=== PATIENT | male | born 1970 | race Caucasian/White ===

== ENCOUNTER 2019-10-05 09:28 | Outpatient (CLI) | payer OTHER, SELFPAY ==
--- NOTE | 2019-10-05 11:00 | NEURO_ITS ---
Patient Number: [id number] Impression: # Complains of paresthesia/numbness of right hand. # Right moderate Carpal Tunnel Syndrome. # No ulnar neuropathy. # Needle/EMG exam neurogenic in right APB. # Ulnar to median cross innervation above the wrist noted. Nerve Conduction Studies Anti Sensory Summary Table Stim Site NR Peak (ms) P-T Amp (?V) Site1 Site2 Delta-P (ms) Dist (cm) Alok (m/s) Right Median Anti Sensory (2-3nd Digit) Wrist 4.2 31.5 Wrist 2-3nd Digit 4.2 14.0 33 Wrist 4.1 39.2 Wrist 2-3nd Digit 4.2 14.0 33 Right Radial Anti Sensory (Base 1st Digit) Wrist 2.0 29.2 Wrist Base 1st Digit 2.0 0.0 Right Ulnar Anti Sensory (5th Digit) Wrist 2.4 47.2 Wrist 5th Digit 2.4 14.0 58 Motor Summary Table Stim Site NR Onset (ms) O-P Amp (mV) Site1 Site2 Delta-0 (ms) Dist (cm) Alok (m/s) Right Median Motor (Abd Poll Brev) Wrist 5.6 2.0 Elbow Wrist 5.5 30.0 55 Elbow 11.1 2.2 Right Ulnar Motor (Abd Dig Minimi) Wrist 2.7 7.7 A Elbow Wrist 5.5 31.0 56 A Elbow 8.2 6.4 F Wave Studies NR F-Lat (ms) L-R F-Lat (ms) Right Median (Mrkrs) (Abd Poll Brev) 28.54 Right Ulnar (Mrkrs) (Abd Dig Min) 29.55 EMG Side Muscle Nerve Root Ins Act Fibs Amp Dur Recrt Comment Right 1stDorInt Ulnar C8-T1 Nml Nml Nml Nml Nml Right Ext Indicis Radial (Post Int) C7-8 Nml Nml Nml Nml Nml Right Ext Digitorum Radial (Post Int) C7-8 Nml Nml Nml Nml Nml Right BrachioRad Radial C5-6 Nml Nml Nml Nml Nml Right PronatorTeres Median C6-7 Nml Nml Nml Nml Nml Right Abd Poll Brev Median C8-T1 Nml Nml Incr >12ms Reduced Right ABD Dig Min Ulnar C8-T1 Nml Nml Nml Nml Nml MTDD
== END 2019-10-05 09:29 | disposition home or self-care (01) ==
LOC: ANHNEURO 09:29
PROVIDERS: PCP Family Medicine Adolescent Medicine; Visit Provider Physician Assistant
DX: R20.2 Paresthesia of skin (principal); G56.01 Carpal tunnel syndrome, right upper limb
CPT/HCPCS: 95886; 95909

== ENCOUNTER 2019-12-07 13:10 | Outpatient (CLI) | payer OTHER, SELFPAY ==
--- NOTE | 2019-12-07 13:14 | ECG_ITS ---
Measurements Intervals [place] Rate: 78 P: 48 GA: 169 QRS: 36 QRSD: 129 T: 14 QT: 372 QTc: 426 Interpretive Statements SINUS RHYTHM RIGHT BUNDLE BRANCH BLOCK ABNORMAL ECG Electronically Signed On 12-07-2019 14:23:27 CDT by Cirilo Santiago D.O.
== END 2019-12-07 13:11 | disposition home or self-care (01) ==
LOC: ANHSURGERY 13:14
PROVIDERS: PCP Family Medicine Adolescent Medicine; Visit Provider Orthopaedic Surgery
DX: Z01.818 Encounter for other preprocedural examination (principal); I10 Essential (primary) hypertension; I45.10 Unspecified right bundle-branch block
CPT/HCPCS: 93005

== ENCOUNTER 2019-12-15 02:12 | Outpatient (CLI) | payer OTHER, SELFPAY ==
[2019-12-15 18:25] LABS: SARS-CoV-2 RNA PCR Negative
== END 2019-12-15 02:13 | disposition home or self-care (01) ==
LOC: ANHCOVIDDT 02:12
PROVIDERS: PCP Family Medicine Adolescent Medicine; Visit Provider Orthopaedic Surgery
DX: Z01.812 Encounter for preprocedural laboratory examination (principal); Z20.828 Contact with and (suspected) exposure to other viral communicable diseases
CPT/HCPCS: 87635; C9803; U0003

== ENCOUNTER 2019-12-18 01:39 | Day surgery (SDC) | payer OTHER, SELFPAY ==
[2019-12-05 15:58] VITALS: BMI 34.2
--- NOTE | 2019-12-18 08:19 | WPDANESEPPF ---
Anes - Initial Pre Proc Eval Procedure: Operation Date: 12/18/19 11:00 Proposed Procedures p Right Carpal Tunnel Release - Nik Dominguez MD Date/Time: 12/18/19 08:19 Surgeon: Nik Dominguez MD Pre Op Diagnosis: Right Carpal Tunnel Syndrome Patient Data Age: 49 Gender: M Height: 1.85 m Weight: 117.93 kg Allergies Allergy/AdvReac Type Severity Reaction Status Date / Time naproxen Allergy Mild vertigo Verified 12/18/19 09:26 Penicillins Allergy Mild Swelling Verified 12/18/19 09:26 Home Medications Medication Instructions Recorded Confirmed Type lisinopril 30 mg PO DAILY 12/05/19 12/18/19 History Patient hx anesthesia problems: none Family hx anesthesia problems: none PMFSH Past Medical History Medical History (Updated 12/18/19 @ 08:19 by Andrea Horner MD) Carpal tunnel syndrome on both sides Hypertension Obesity Surgical History Surgical History History of left knee surgery (~2015) Dr bennett Family History Family History Father Diabetes mellitus Hypertension Grandparent Diabetes mellitus Social History Social History Smoking status: Never smoker Alcohol intake: current Drinks per week: 3 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 Spiritual care concerns: No Anes - Eval Final PreProcedure Day of Procedure 12/18/19 08:19 Patient weight: obese Heart: regular rate and rhythm Lungs: clear to auscultation and normal air movement Airway: Mallampati scale class II Neurological: alert and oriented Last oral intake: >/= 8 hours ASA classification: III Emergent: no Anesthetic plan: proceed Anesthesia type and monitoring: general GIVS and LMA Informed Consent: The patient's anesthetic plan and its attendant risks and benefits were discussed with the patient/family/POA. Questions were solicited and answers provided to the satisfaction of the patient/family/POA.
[2019-12-18 08:59] VITALS: BP 130/92; PULSE 82; RESP 18; TEMP 36.6; O2SAT 100
[2019-12-18] MEDS: LACTATED RINGERS 1,000 ML 30 ML IV CONT (09:10)
[2019-12-18] MEDS: KETOROLAC 15 MG/ML VIAL (*BKC) IV PUSH (09:16)
[2019-12-18] MEDS: ACETAMINOPHEN 500 MG TABLET 1000 MG PO (09:16)
--- NOTE | 2019-12-18 10:59 | WPDHPUPDATE1 ---
History and Physical Update Update Date/Time: 12/18/19 10:59 History and Physical has been reviewed, including an updated exam of the patient. There are NO changes in the patient's condition. Risks, benefits, and alternatives have been discussed and questions answered. Patient agrees to proceed with procedure.
[2019-12-18] MEDS: CLINDAMYCIN 900 MG/NS 50 ML 900 MG/50 ML PIGGYBACK 50 MG IVPB (11:05)
[2019-12-18] MEDS: BUPIVACAINE/EPINEPHRINE 0.25% 50 ML VIAL 10 ML INFILTRATE (11:13)
[2019-12-18 11:34] VITALS: BP 139/77; PULSE 80; RESP 18; O2SAT 95
--- NOTE | 2019-12-18 11:44 | P.OP_ITS ---
Procedure Note - Detailed Date of procedure: 12/18/19 Pre-op diagnosis: Right Carpal Tunnel Syndrome Post-op diagnosis: same Procedure performed: Open right carpal tunnel release Description of procedure: The patient was identified and proper side identified. After being taken to the operating room and transferred to the OR table, a nonsterile tourniquet was placed high on the right upper extremity, which was prepped and draped in the usual sterile fashion. After IV sedation was administered, the subcutaneous tissue in the area of the incision was infiltrated with several cc of 0.25% Marcaine and epinephrine solution. The extremity was exsanguinated and tourniquet inflated to 250 mmHg remaining up for approximately 4 minutes. A longitudinal incision was over the ulnar aspect of the transverse carpal ligament. Subcutaneous tissue was bluntly dissected down to the ligament, which was identified and then transected longitudinally in line with the incision releasing the contents of the carpal canal. The tourniquet was released. Hemostasis was carried out with bipolar electrocautery. The median nerve had appropriate blush with reperfusion. The wound was irrigated with sterile saline solution. Skin edges were reappr oximated with four 0 nylon suture and a sterile dressing was applied. A well- padded volar wrist splint was fashioned with the wrist in a neutral position. Anesthesia: MAC and local Surgeon: Nik Dominguez MD Estimated blood loss (mL): 2 Tourniquet time (min): 4 Drains: No Packing: No Pathology: none sent Complications: No immediate complications Condition: stable Disposition: same day
[2019-12-18 12:05] VITALS: BP 131/76; PULSE 77; RESP 18; O2SAT 95
[2019-12-18 12:50] VITALS: BP 130/62; PULSE 57; RESP 16
--- NOTE | 2019-12-18 13:03 | SUR.PHASEII ---
1250; PT AWAKE AND ALERT. DENIES PAIN. READY TO GO HOME. MEETS DISCHARGE CRITERIA.
== END 2019-12-18 13:14 | disposition home or self-care (01) ==
PROVIDERS: PCP Family Medicine Adolescent Medicine; Visit Provider Orthopaedic Surgery
PROC: (CPT 64721; principal; 2019-12-18 11:00)
DX: G56.01 Carpal tunnel syndrome, right upper limb (principal); I10 Essential (primary) hypertension; E66.9 Obesity, unspecified; Z68.33 Body mass index [BMI] 33.0-33.9, adult
CPT/HCPCS: 64721; A9270; J1885; J2250; J2704; J3010; J7120

== ENCOUNTER 2019-12-29 02:49 | Outpatient (CLI) | payer OTHER, SELFPAY ==
[2019-12-29 18:02] LABS: SARS-CoV-2 RNA PCR Negative
== END 2019-12-29 02:50 | disposition home or self-care (01) ==
LOC: ANHCOVIDDT 02:49
PROVIDERS: PCP Family Medicine Adolescent Medicine; Visit Provider Orthopaedic Surgery
DX: Z01.812 Encounter for preprocedural laboratory examination (principal); Z20.828 Contact with and (suspected) exposure to other viral communicable diseases
CPT/HCPCS: 87635; C9803; U0003

== ENCOUNTER 2020-01-01 01:14 | Day surgery (SDC) | payer OTHER, SELFPAY ==
[2019-12-05 16:00] VITALS: BMI 34.2
--- NOTE | 2019-12-29 15:35 | WPDANESEPPF ---
Anes - Initial Pre Proc Eval Procedure: Operation Date: 01/01/20 09:30 Proposed Procedures p Left Carpal Tunnel Release - Nik Dominguez MD Date/Time: 12/29/19 15:35 Surgeon: Nik Dominguez MD Pre Op Diagnosis: Left Carpal Tunnel Syndrome Patient Data Age: 49 Gender: M Height: 1.85 m Weight: 117.93 kg Allergies Allergy/AdvReac Type Severity Reaction Status Date / Time naproxen Allergy Mild vertigo Verified 01/01/20 07:40 Penicillins Allergy Mild Swelling Verified 01/01/20 07:40 Home Medications Medication Instructions Recorded Confirmed Type lisinopril 30 mg PO DAILY 12/05/19 01/01/20 History ECG: Date of Service: 12/07/19 Procedure(s): CA 12 lead EKG Accession Number(s): [id number] cc: ~ Measurements Intervals [place] Rate: 78 P: 48 AK: 169 QRS: 36 QRSD: 129 T: 14 QT: 372 QTc: 426 Interpretive Statements SINUS RHYTHM RIGHT BUNDLE BRANCH BLOCK ABNORMAL ECG Electronically Signed On 12-07-2019 14:23:27 CDT by Cirilo Santiago D.O. Dictated By: Cirilo Santiago DO 12/07/19 1347 Patient hx anesthesia problems: none Family hx anesthesia problems: none PMFSH Past Medical History Medical History (Updated 12/18/19 @ 08:19 by Andrea Horner MD) Carpal tunnel syndrome on both sides Hypertension Obesity Surgical History Surgical History History of left knee surgery (~2015) Dr bennett Family History Family History Father Diabetes mellitus Hypertension Grandparent Diabetes mellitus Social History Social History Smoking status: Never smoker Alcohol intake: current Drinks per week: 3 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 Spiritual care concerns: No Anes - Eval Final PreProcedure Day of Procedure 12/29/19 15:35 Patient weight: obese Heart: regular rate and rhythm Lungs: clear to auscultation and normal air movement Airway: Mallampati scale class II Neurological: alert and oriented Last oral intake: >/= 8 hours ASA classification: II Emergent: no Anesthetic plan: proceed Anesthesia type and monitoring: general GIVS and LMA Informed Consent: The patient's anesthetic plan and its attendant risks and benefits were discussed with the patient/family/POA. Questions were solicited and answers provided to the satisfaction of the patient/family/POA.
[2020-01-01 08:00] VITALS: BP 152/92; PULSE 78; RESP 16; TEMP 36.7; O2SAT 96
[2020-01-01] MEDS: LACTATED RINGERS 1,000 ML 30 ML IV CONT (08:09)
[2020-01-01] MEDS: ACETAMINOPHEN 500 MG TABLET 1000 MG PO (08:10)
--- NOTE | 2020-01-01 08:36 | WPDHPUPDATE1 ---
History and Physical Update Update Date/Time: 01/01/20 08:36 History and Physical has been reviewed, including an updated exam of the patient. There are NO changes in the patient's condition. Risks, benefits, and alternatives have been discussed and questions answered. Patient agrees to proceed with procedure.
[2020-01-01] MEDS: CLINDAMYCIN 900 MG/D5W 50 ML 900 MG/50 ML PIGGYBACK 50 MG IVPB (09:15)
[2020-01-01] MEDS: BUPIVACAINE/EPINEPHRINE 0.25% 50 ML VIAL 10 ML INFILTRATE (09:40)
[2020-01-01 09:55] VITALS: BP 116/68; PULSE 80; RESP 14; O2SAT 95
--- NOTE | 2020-01-01 10:00 | P.OP_ITS ---
Procedure Note - Detailed Date of procedure: 01/01/20 Pre-op diagnosis: Left Carpal Tunnel Syndrome Post-op diagnosis: same Procedure performed: Open left carpal tunnel release; removal sutures right wrist Description of procedure: The patient was identified and proper side identified. After being taken to the operating room and transferred to the OR table, a nonsterile tourniquet was placed high on the left upper extremity, which was prepped and draped in the usual sterile fashion. While this was being done, the sutures were removed from the prior right carpal tunnel release site and Steri- Strips applied. After IV sedation was administered, the subcutaneous tissue in the area of the incision was infiltrated with several cc of 0.25% Marcaine and epinephrine solution. The extremity was exsanguinated and tourniquet inflated to 250 mmHg remaining up for approximately five minutes. A longitudinal incision was over the ulnar aspect of the transverse carpal ligament. Subcutaneous tissue was bluntly dissected down to the ligament, which was identified and then transected longitudinally in line with the incision releasing the contents of the carpal canal. The tourniquet was released. Hemostasis was carried out with bipolar electrocautery. The median nerve had appropriate blush with reperfusion. The wound was irrigated with sterile saline solution. Skin edges were reapproximated with four 0 nylon suture and a sterile dressing was applied. A well-padded volar wrist splint was fashioned with the wrist in a neutral position. Anesthesia: MAC Surgeon: Nik Dominguez MD Estimated blood loss (mL): 1 Tourniquet time (min): 5 Drains: No Packing: No Pathology: none sent Complications: No immediate complications Condition: stable Disposition: PACU
[2020-01-01 10:15] VITALS: BP 121/75; PULSE 50; RESP 20
[2020-01-01 10:45] VITALS: BP 144/88; PULSE 20; RESP 20
== END 2020-01-01 11:08 | disposition home or self-care (01) ==
PROVIDERS: PCP Family Medicine Adolescent Medicine; Visit Provider Orthopaedic Surgery
PROC: (CPT 64721; principal; 2020-01-01 09:30)
DX: G56.02 Carpal tunnel syndrome, left upper limb (principal); I10 Essential (primary) hypertension; E66.9 Obesity, unspecified; Z68.34 Body mass index [BMI] 34.0-34.9, adult
CPT/HCPCS: 64721; A9270; J1100; J2250; J2405; J2704; J3010; J7120

== ENCOUNTER 2020-02-12 09:45 | Outpatient (RCR) | payer OTHER, SELFPAY ==
--- NOTE | 2020-01-29 11:34 | OTOPEVAL ---
OCCUPATIONAL THERAPY INITIAL EVALUATION 01/29/20 Thank you for referring Mamadou Youssef to [facility].? The patient is scheduled to be seen for therapy? 2x/week for 5 weeks. Please review, sign, date and return this plan of care CLAUDIA. I agree with and certify that the following plan of care is medically necessary. Referring Physician Date Attending Provider: Nik Dominguez MD Referring Provider: Nik Dominguez MD *OT Outpatient Evaluation Start: 01/29/20 09:58 Freq: Status: Active Protocol: Document 01/29/20 09:58 RUIZ (Rec: 01/29/20 11:33 RUIZ [email or web address]) Therapy Assessment Status Assessment Status Assessment Status Evaluation Outpatient Past Medical History Neurological History Hx Neurological Disorders No Significant History Cardiovascular History Hx Hypertension Yes Respiratory History Hx Respiratory Disorders No Significant History Gastrointestinal History Hx Gastrointestinal Disorders No Significant History Genitourinary History Hx Genitourinary Disorders No Significant History Musculoskeletal History Hx Orthopedic Surgery Yes: L KNEE ARTHROSCOPY Hx Other Musculoskeletal Disorders Yes: BILATERAL CARPAL TUNNEL RELEASE 2020 Hematological History Hx Hematological Disorders No Significant History Endocrine History Hx Endocrine Disorders No Significant History HEENT History Hx HEENT Disorders No Significant History Integumentary History Hx Shingles Yes Reproductive History Hx Reproductive Disorders No Significant History Psychosocial History Hx Psychiatric Disorders No Significant History Pain History History of Any Previous or Ongoing No Significant History Instance of Pain Anesthesia History Hx Anesthesia Reactions No Significant History Evaluation Information Problem Diagnosis Bilateral carpal tunnel release Onset (R) 12/18/19, (L) 01/01/20 Subjective Information Works for a [employer], Query Text:As Reported By 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 Has not returned to work yet. Since his release surgeries, he reports sensitivity and pain with touch to bilateral palms. Reports difficulties with gripping, opening containers, and lifting a gallon of milk due to pain with pressure at the surgical sites. States
--- NOTE | 2020-02-07 11:20 | PCOTNOTE ---
Patient called & cancelled scheduled appointment this date due to a family emergency.
--- NOTE | 2020-02-14 10:27 | PCOTNOTE ---
Addendum entered by Luis Joseph, ONELR/Christian, CHT 02/14/20 10:27: * due to possibly being exposed to COVID-19. Original Note: Patient called & cancelled scheduled appointment this date due to [ ]
--- NOTE | 2020-02-20 08:57 | OTOPEVAL ---
OCCUPATIONAL THERAPY DISCHARGE NOTE 02/20/2020 Mamadou called today to cancel his appointments due to testing positive for COVID-19. He participated in the initial evaluation and 3 subsequent treatment sessions following bilateral carpal tunnel release. He was independent with ROM, tendon glides, and theraputty home exercise programs. 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 He continued to report discomfort with pressure over the incisions, but has been educated on scar massage as well as desensitization. He verbalizes his understanding that healing and improvements with strength will take time. Discharging today with the goals not formally assessed. Thank you for referring Mamadou Youssef to [facility].?Please review, sign, date and return this Discharge Note CLAUDIA. I agree with and certify that the following plan of care is medically necessary. Referring Physician Date Referring Provider: Nik Dominguez MD
== END 2020-02-20 13:31 | disposition home or self-care (01) ==
LOC: ANHOT 09:45
PROVIDERS: PCP Family Medicine Adolescent Medicine; Referring Provider Orthopaedic Surgery; Visit Provider Orthopaedic Surgery
DX: G56.03 Carpal tunnel syndrome, bilateral upper limbs (principal)
CPT/HCPCS: 97018; 97035; 97110; 97140; 97165

== ENCOUNTER 2020-12-25 10:25 | Emergency (ER) | payer OTHER, SELFPAY ==
[2020-12-25 10:31] VITALS: BP 155/86; PULSE 75; RESP 16; TEMP 36.9; O2SAT 99
--- NOTE | 2020-12-25 10:50 | ED.BACK ---
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 Patient states she has a shorter 1 day history of low back pain is mild, worse with motion, better at rest begin after he reaching or pulling. No bowel?bladder symptoms, hematuria/frequency/urgency, radiating pain, numbness/weakness, prior injury or pain. Related Data Home Medications Medication Instructions Recorded Confirmed lisinopril 30 mg PO DAILY 12/05/19 12/25/20 Allergies Allergy/AdvReac Type Severity Reaction Status Date / Time naproxen Allergy Mild vertigo Verified 01/01/20 07:40 Penicillins Allergy Mild Swelling Verified 01/01/20 07:40 Review of Systems Review of Systems: General/Constitutional: No weight loss,fever Eyes: N0: Redness,discharge Ears/Nose/Throat: No: Epistaxis,ear discharge Respiratory: Denies: Hemoptysis Gastrointestinal: No Vomiting, Bleeding-rectal Skin: No Lumps, eruption Neurologic: No Focal Weakness,Sz Hematologic: Denies: Petechiae/Purpura Psychiatric: No: Suicida ideationl All Other Systems: Reviewed and Negative PMFSH Past Medical History Medical History (Updated 12/25/20 @ 10:53 by Raheem Mckeon MD) Hypertension Obesity Surgical History Surgical History (Updated 02/15/20 @ 08:11 by Nik Dominguez MD) Carpal tunnel syndrome on both sides Staged bilateral releases November 2019 History of left knee surgery (~2015) Dr bennett Family History Family History Father Diabetes mellitus Hypertension Grandparent Diabetes mellitus Social History Social History Smoking status: Never smoker Alcohol intake: current Drinks per week: 3 Alcohol use details: occasional 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 Spiritual care concerns: No Comments At time of signature, agree with nursing past medical, surgical, social and family history. There is no relevant family history pertinent to the presenting complaint Exam Narrative: General Appearance: Well nourished/overweight, Conjunctiva clear Ears: External ear normal Nose: Normal nose Mouth/Throat: Normal appearing, Normal lips,: Supple Respiratory: Airway patent Abdomen: Soft Musculoskeletal: Nl strength (no footdrop, 5/5 : EH L-FHL, gastroc-AT, no saddle weakness) Spine/Back: Paraspinal muscle tender (with mild decreased range of motion; ) Skin: Normal color, no straight leg raise, no sciatic notch tenderness Neurological: A&O x3, CN II-XII intact, Normal reflexes (symmetric, 2+ KJ, 1+ AJ) Psychiatric: Normal mood Course Vital Signs Vital signs: Vital Signs Temperature 98.5 F 12/25/20 10:31 Pulse Rate 75 12/25/20 10:31 Respiratory Rate 16 12/25/20 10:31 Blood Pressure 155/86 H 12/25/20 10:31 Pulse Oximetry 99 12/25/20 10:31 Temperature 98.5 F 12/25/20 10:31 Pulse Rate 75 12/25/20 10:31 Respiratory Rate 16 12/25/20 10:31 Blood Pressure 155/86 H 12/25/20 10:31 Pulse Oximetry 99 12/25/20 10:31 Discharge Plan Discharge Clinical Impression: Back strain Qualifiers: Encounter type: initial encounter Qualified Code(s): S39.012A - Strain of muscle, fascia and tendon of lower back, initial encounter Patient Disposition: Home, Self-Care Condition: Stable Instructions: Acute Low Back Pain (ED) Prescriptions: New acetaminophen-codeine 300-30 mg tablet 1 - 1.5 tablet PO HS PRN (Reason: pain) Qty: 10 RF: 0 tramadol 50 mg tablet 50 - 75 mg PO BID PRN (Reason: pain) Qty: 20 RF: 0 No Action lisinopril 30 mg tablet 30 mg PO DAILY RF: 0 Follow-up/Referrals: Ector Joshi MD [Isaura
== END 2020-12-25 11:01 | disposition home or self-care (01) ==
PROVIDERS: Emergency Provider Emergency Medicine; PCP Family Medicine Adolescent Medicine
DX: S39.012A Strain of muscle, fascia and tendon of lower back, initial encounter (principal); X50.3XXA Overexertion from repetitive movements, initial encounter; Y99.0 Civilian activity done for income or pay; I10 Essential (primary) hypertension; E66.9 Obesity, unspecified; Z68.33 Body mass index [BMI] 33.0-33.9, adult
CPT/HCPCS: 99213; G0463

== ENCOUNTER → 2021-02-14 03:51 | Outpatient (CLI) | payer OTHER, SELFPAY ==
[2021-02-17 20:40] LABS: SARS-CoV-2 RNA PCR Negative
== END ==
PROVIDERS: PCP Family Medicine Adolescent Medicine; Visit Provider Physician Assistant
DX: R05.9 Cough, unspecified (principal); Z20.822 Contact with and (suspected) exposure to COVID-19
CPT/HCPCS: C9803; U0003; U0005

== ENCOUNTER → 2021-02-19 10:05 | Outpatient (CLI) | payer OTHER, SELFPAY ==
--- NOTE | ~2021-02-19 | XR_ITS ---
XR sacroiliac joints min 3V DATE: 02/19/2021 10:24 INDICATION: Low back pain after injury TECHNIQUE: AP, angled AP, bilateral oblique and lateral views COMPARISON: 02/19/2021 lumbar spine FINDINGS: Transitional lumbosacral vertebra. The sacroiliac joints appear normal. No erosive change, ankylosis, fracture or dislocation is evident at either sacroiliac joint. IMPRESSION: Transitional lumbosacral vertebra Negative sacroiliac joints Reviewed, dictated and finalized at Location [facility]. Reviewed, dictated and finalized at location B. 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
--- NOTE | ~2021-02-19 | XR_ITS ---
XR lumbar spine min 4V DATE: 02/19/2021 10:24 INDICATION: Low back pain after injury TECHNIQUE: AP, lateral, bilateral oblique views and coned lateral lumbosacral view COMPARISON: None FINDINGS: There are 5 functional lumbar vertebrae and a transitional lumbosacral vertebra, presumably S1. No fracture, bone destruction, spondylolysis or spondylolisthesis is detected. The lumbar pedicles ar e intact. There is moderately prominent degenerative disc disease and spurring at L1-2 and L2-3 anterolisthesis at L3-4 and L4-5. There is moderately prominent loss of interspace height at L5-S1. The sacroiliac joints are intact. IMPRESSION: Transitional first sacral vertebra Multilevel degenerative disc disease Reviewed, dictated and finalized at location B. 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
== END ==
PROVIDERS: PCP Family Medicine Adolescent Medicine; Visit Provider Physician Assistant
DX: M54.50 Low back pain, unspecified (principal)
CPT/HCPCS: 72110; 72202

== ENCOUNTER 2022-04-17 12:25 | Outpatient (CLI) | payer OTHER, SELFPAY ==
--- NOTE | ~2022-04-17 | MR_ITS ---
EXAMINATION: MR lumbar spine wo con DATE: 04/17/2022 13:12 INDICATION: Worsening chronic low back pain. TECHNIQUE: Magnetic resonance imaging (MRI) of the lumbar spine was performed without intravenous con trast. Sequences included sagittal T2-weighted FSE, sagittal T2-weighted FS FSE, sagittal T1-weighted FSE, and axial T2-weighted FSE. COMPARISON: Lumbar spine radiographs 02/19/2021 FINDINGS: There is a transitional segment at lumbosacral junction that is designated S1. There is mil d chronic anterior wedging of L1 vertebral body. There are Schmorl's nodes at multiple levels. There is moderately decreased disc height at L5-S1. The distal spinal cord signal intensity is normal. The conus medullaris is at L1-L2. The following disc levels are specifically discussed: L1-L2: The disc does not extend beyond the endplate margin. There is mild bilateral facet joint osteo arthritis. There is no neural foraminal stenosis. There is no central canal stenosis. L2-L3: The disc is bulging and has an annular fissure. There is mild bilateral facet joint osteoarthr itis. There is mild right neural foraminal stenosis. There is mild central canal stenosis. L3-L4: The disc does not extend beyond the endplate margin. There is moderate right and severe left f acet joint osteoarthritis. There is no neural foraminal stenosis. There is no central canal stenosis. L4-L5: The disc is bulging. There is severe bilateral facet joint osteoarthritis. There is mild bilat eral neural foraminal stenosis. There is mild central canal stenosis. L5-S1: The disc is bulging and has an annular fissure. There is mild bilateral facet joint osteoarthr itis. There is mild bilateral neural foraminal stenosis. There is mild central canal stenosis. IMPRESSION: 1. Moderate lumbar spondylosis. Reviewed, dictated and finalized at location A. 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
== END 2022-04-17 12:26 | disposition home or self-care (01) ==
PROVIDERS: PCP Family Medicine Adolescent Medicine; Visit Provider Physician Assistant
DX: M47.896 Other spondylosis, lumbar region (principal)
CPT/HCPCS: 72148

== ENCOUNTER 2023-11-15 10:41 | Outpatient (CLI) | payer OTHER, SELFPAY ==
--- NOTE | ~2023-11-15 | XR_ITS ---
XR shoulder LT min 2V Ordering provider: Jenn Vaca DO History: . M25.512 - Pain in left shoulder . Comparison: None. FINDINGS: BONES: No acute fracture or dislocation. JOINT SPACES: The acromioclavicular joint is normal. The glenohumeral joint is normal. SOFT TISSUES: Normal. IMPRESSION: No acute osseous abnormality left shoulder. Reviewed, dictated and finalized at location A.
== END 2023-11-15 10:42 | disposition home or self-care (01) ==
LOC: MICIMG 10:43
PROVIDERS: PCP Family Medicine; Visit Provider Family Medicine
DX: M25.512 Pain in left shoulder (principal); M25.612 Stiffness of left shoulder, not elsewhere classified; M75.42 Impingement syndrome of left shoulder; S46.912A Strain of unspecified muscle, fascia and tendon at shoulder and upper arm level, left arm, initial encounter; X58.XXXA Exposure to other specified factors, initial encounter
CPT/HCPCS: 73030

== ENCOUNTER 2023-11-26 10:42 | Outpatient (CLI) | payer OTHER, SELFPAY ==
--- NOTE | ~2023-11-26 | XR_ITS ---
XR shoulder RT min 2V 11/26/2023 11:07 Indication: Right shoulder pain Procedure: 4 views right shoulder Comparison: No prior studies for comparison. Findings: No fracture, subluxation or dislocation. There is mild glenohumeral joint degenerative feng ge. No soft tissue abnormality. No foreign bodies. Impression: 1: Mild glenohumeral joint osteoarthritis. Reviewed, dictated and finalized at location B. Impression: 1: Mild glenohumeral joint osteoarthritis.
== END 2023-11-26 10:43 | disposition home or self-care (01) ==
LOC: MICIMG 10:43
PROVIDERS: PCP Family Medicine Adolescent Medicine; Visit Provider Family Medicine
DX: M19.011 Primary osteoarthritis, right shoulder (principal)
CPT/HCPCS: 73030

== ENCOUNTER 2023-11-28 07:20 | Outpatient (CLI) | payer OTHER, SELFPAY ==
--- NOTE | ~2023-11-28 | MR_ITS ---
MRI of the left shoulder Technique: Axial proton-density fat-sat images, coronal proton density fat-sat and T2 fat-sat images, and sagittal T1-weighted and T2 fat-sat images were acquired. Clinical History: Impingement syndrome Findings: Exam mildly degraded by motion artifact. There is moderate AC joint degenerative change, wi th small subacromial spur present and mild bony productive change of the distal clavicle. Coracoclavi cular, coracoacromial, and coracohumeral ligaments are intact. There is probable focal full-thickness tear at the very distal, anterior supraspinatus tendon inserti on. There is moderate background supraspinatus tendinosis. Infraspinatus tendon is intact. Subscapula ris tendon is intact. Tendon of the long head of the biceps is intact. No labral tear evident. Inferior glenohumeral ligament is intact. No degenerative change or effusion of the glenohumeral join t. No significant fluid in the subacromial/subdeltoid bursa. No muscle atrophy or edema evident. No abnormal postcontrast enhancement identified. Impression: Probable focal full-thickness tear at the distal, anterior supraspinatus tendon insertion. Background moderate supraspinatus tendinosis. Moderate AC joint degenerative change. Reviewed, dictated and finalized at location . Impression: Probable focal full-thickness tear at the distal, anterior supraspinatus tendon insertion. Background moderate supraspinatus tendinosis. Moderate AC joint degenerative change.
== END 2023-11-28 07:21 | disposition home or self-care (01) ==
PROVIDERS: PCP Family Medicine Adolescent Medicine; Visit Provider Family Medicine
DX: M75.42 Impingement syndrome of left shoulder (principal); M19.012 Primary osteoarthritis, left shoulder
CPT/HCPCS: 73223; A9577

== ENCOUNTER 2024-03-02 09:27 | Outpatient (CLI) | payer OTHER, SELFPAY ==
[2024-03-02 10:16] LABS: Anion Gap 5 mmol/L (4-12); Blood Urea Nitrogen 17 mg/dL (9-20); Calcium 9.3 mg/dL (8.4-10.2); Carbon Dioxide 30 mmol/L (22-30); Chloride 103 mmol/L (98-107); Estimated Glomerular Filt Rate > 60; Glucose 130 mg/dL (65-110); Potassium 3.7 mmol/L (3.4-5.0); Sodium 138 mmol/L (137-145)
--- NOTE | 2024-03-02 10:22 | ECG_ITS ---
Test Date: 2024-03-02 10:27:30 Measurements Intervals Loman Rate: 73 P: 28 VA: 171 QRS: 32 QRSD: 137 T: -6 QT: 397 QTc: 438 Interpretive Statements SINUS RHYTHM RIGHT BUNDLE BRANCH BLOCK [120+ ms QRS DURATION, UPRIGHT V1, 40+ ms S IN I/aVL/V4/V5/V6] No previous ECG available for comparison Electronically Signed On 03-06-2024 11:21:35 WIRE STRAIGHTENING MACHINE OPERATOR by Evgeny Barlow M.D.
== END 2024-03-02 09:28 | disposition home or self-care (01) ==
LOC: ANHLAB 09:28
PROVIDERS: PCP Family Medicine Adolescent Medicine; Visit Provider Anesthesiology
DX: Z01.818 Encounter for other preprocedural examination (principal); I10 Essential (primary) hypertension; I45.10 Unspecified right bundle-branch block; Z79.899 Other long term (current) drug therapy
CPT/HCPCS: 36415; 80048; 93005

== ENCOUNTER 2024-03-08 00:43 | Day surgery (SDC) | payer OTHER, SELFPAY ==
[2024-02-25 12:30] VITALS: BMI 34.2
--- NOTE | 2024-02-25 12:50 | PC.NURSE ---
Report to the Outpatient Waiting Room, entrance under the green pavilion located off [facility], at time __0600 on date _03/08/24 . Planned Procedure Time: __729 .? Time changes happen often and if your time is changed the preop area will call you the afternoon before. - You and your visitor will be asked to self-screen and do not enter if you have any COVID symptoms. Please call surgeon if you need to reschedule. - A mask is optional within the hospital at this time. Patients may have clear liquids (water, carbonated beverages, clear teas, apple juice) until 3 hours prior to surgery with a maximum of 20 ounces. - No food from midnight until time of surgery and no smoking. This includes no chewing gum, candy or mints. - Infants may have breast milk until 4 hours before surgery, infant formula 6 hours prior to surgery. - Children will be allowed to drink immediately following surgery.? If applicable, please bring a bottle or sippy cup to assist with drinking. Juice, water, soda, and popsicles are readily available.? For infants on formula, please bring formula the day of surgery.? Pacifiers are allowed. Take only the following medications with a SIP of water on the morning of surgery: __Hydrocodone DO NOT STOP ANY OF YOUR OTHER PRESCRIPTION MEDICATIONS PRIOR TO SURGERY EXCEPT THE FOLLOWING Medications to discontinue per physician N/A Date to take last dose____N/A Please no make-up, nail thai, hairspray, perfume, deodorant, or body powder the day of surgery.? No jewelry (including any body piercings) or valuables the day of surgery, leave them at home.? Please take a shower or bath the night before, or the morning of, surgery with an antibacterial soap.? Wear comfortable, loose fitting clothing.? Children are encouraged to wear pajamas. - Jewelry must be removed prior to entering the operating room.? Rings and piercings that are not removed may be cut off. - The hospital will not accept responsibility for valuables.? - Please leave all valuables, including medications, at home the day of surgery. If you are going home after surgery, a licensed dump truck driver off highway must drive you home.? - NO public transportation without another adult if you receive anesthesia. - We recommend that an adult stay with you for 24 hours following discharge. - We also recommend that you do not drive, make important decision, drink alcoholic beverages, or take any drugs that were not prescribed by your health care provider for at least 24 hours after your discharge time. For Pediatric surgeries, we recommend two adults accompany the child home. Follow any additional instructions given to you from your surgeon. Telephone instructions given to __Mamadou and asked if any additional questions and then verbalized understanding. Patient advised to call surgeon office or pre surgery nurse liaison [phone] if any additional questions.
--- NOTE | 2024-03-07 08:51 | PM.IMHP ---
H&P: HPI History of Present Illness Date/Time: 03/07/24 08:51 Chief Complaint: Patient presents with shoulder pain left. He has rotator cuff tear of the left shoulder has been unresponsive to conservative treatment. He would like to consider rotator cuff debridement and repair. He also has degenerative change of the acromioclavicular joint will do a distal clavicle excision at that time. Review of Systems Musculoskeletal: Musculoskeletal: Reports arthralgias, Reports joint swelling and Reports stiffness [facility] Past Medical History Medical History Hypertension Obesity Right conjunctivitis Testicular hypofunction Surgical History Surgical History Carpal tunnel syndrome on both sides Staged bilateral releases November 2019 History of left knee surgery (~2015) Dr bennett Family History Family History (Updated 01/13/24 @ 09:40 by Johanne Reis CMA) Father Diabetes mellitus Hypertension DVT (deep venous thrombosis) Grandparent Diabetes mellitus Mother DVT (deep venous thrombosis) Social History Social History Smoking status: Never smoker Second hand tobacco smoke exposure: No Alcohol intake: current Drinks per week: 1 Alcohol use details: Social drinker Substance use type: does not use Do You Feel Safe in your Home?: Yes Lack of Transportation: No Lack of Food: Never True Current Housing: I Have Housing Concerned About Future Housing: No Difficulty Paying Gas/Electric Bills: No Difficulty Paying for Meds: No Currently Unemployed: No Education: Trade/Vocational Certificate Difficulty w/ Childcare or Family Care: No Living arrangements: with family Occupation/Education: occupation 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 Gender identity (if verbalized by the patient): Male Sexual Orientation (if Verbalized by the Patient): Straight or Heterosexual Spiritual care concerns: No Agree to blood products: Yes Meds Home Medications and Allergies Home Medications ?Medication ?Instructions ?Recorded ?Confirmed ?Type lisinopril 20 2 tablet PO DAILY #180 tabs 10/29/23 02/25/24 Rx mg-hydrochlorothiazide 12.5 mg tablet hydrocodone 5 mg-acetaminophen 325 1 tablet PO DAILY PRN pain #14 tabs 10/08/24 12/27/24 Rx mg tablet sildenafil (pulm.hypertension) 20 100 mg (5 x 20 mg) PO DAILY PRN 01/10/24 02/25/24 Rx mg tablet sexual activity #30 tabs Allergies Allergy/AdvReac Type Severity Reaction Status Date / Time naproxen Allergy Mild vertigo Verified 02/25/24 13:14 Penicillins Allergy Mild Swelling Verified 02/25/24 13:14 indomethacin AdvReac Intermediate Nausea Verified 02/25/24 13:14 Exam Narrative: On exam he has got impingement of his left shoulder. He is weak in abduction external rotation is pain with overhead motion. Neurologically he is grossly intact. He is tender over the acromioclavicular joint as well. He has pain and give-way with resisted abduction and external rotation. Radiology Reports: Comments: Patient: WanzohrehMamadou Jr. MRI of the left shoulder Technique: Axial proton-density fat-sat images, coronal proton density fat-sat and T2 fat-sat images, and sagittal T1-weighted and T2 fat-sat images were acquired. Clinical History: Impingement syndrome Findings: Exam mildly degraded by motion artifact. There is moderate AC joint degenerative change, with small subacromial spur present and mild bony productive change of the distal clavicle. Coracoclavicular, coracoacromial, and coracohumeral ligaments are intact. There is probable focal full-thickness tear at the very distal, anterior supraspinatus tendon insertion. There is moderate background supraspinatus tendinosis. Infraspinatus tendon is intact. Subscapularis tendon is intact. Tendon of the long head of the biceps is intact. No labral tear evident. Inferior glenohumeral ligament is intact. No degenerative change or effusion of the glenohumeral joint. No significant fluid in the subacromial/subdeltoid bursa. No muscle atrophy or edema evident. No abnormal postcontrast enhancement identified. Impression: Probable focal full-thickness tear at the distal, anterior supraspinatus tendon insertion. Background moderate supraspinatus tendinosis. Moderate AC joint degenerative change. Reviewed, dictated and finalized at location . Dictated By: Gumaro Shafer MD 11/29/23 0832 Signed By: <Electronically signed by Gumaro Shafer MD in OV> 11/29/23 0835 Hand X-Ray 07/04/19 Shoulder X-Ray 11/26/23 Shoulder MRI 11/29/23 Orthopedics Result Report 07/04/19 Lumbar Spine X-Ray 02/19/21 Lumbar Spine MRI 04/17/22 Assessment and Plan Assessment and plan (1) Tear of left supraspinatus tendon: Code(s): M75.102 - Unspecified rotator cuff tear or rupture of left shoulder, not specified as traumatic Status: Acute Assessment and Plan: Patient is a rotator cuff tear left. He has failed conservative treatment today would like to consider surgical repair and debridement. Does have some distal clavicle arthritis as well we will proceed with arthroscopy left shoulder open distal clavicle excision rotator cuff debridement repair were proceed as indicated. I have discussed this with him at the length; risks, benefits, limitations, and alternatives in detail. He understands and agrees will proceed per his request. (2) Acromioclavicular arthrosis: Code(s): M19.019 - Primary osteoarthritis, unspecified shoulder Status: Acute
[2024-03-08] VITALS (13 sets, daily range): BP systolic 102–169; BP diastolic 56–99; PULSE 69–87; RESP 12–18; TEMP 36.2–36.6; O2SAT 92–99
[2024-03-08] MEDS: ACETAMINOPHEN 500 MG TABLET 1000 MG PO (06:40)
[2024-03-08] MEDS: KETOROLAC 15 MG/ML VIAL (*BKC) IV PUSH (06:45)
[2024-03-08] MEDS: LACTATED RINGERS 1,000 ML 30 ML IV CONT (06:45)
--- NOTE | 2024-03-08 06:47 | WPDHPUPDATE1 ---
History and Physical Update Update Date/Time: 03/08/24 06:47 History and Physical has been reviewed, including an updated exam of the patient. There are NO changes in the patient's condition. Risks, benefits, and alternatives have been discussed and questions answered. Patient agrees to proceed with procedure.
--- NOTE | 2024-03-08 07:03 | P.PNAN_ITS ---
Anes - Initial Pre Proc Eval Procedure: Operation Date: 03/08/24 07:30 Proposed Procedures p Left Shoulder Arthroscopy, Open Rotator Cuff Repair, Distal Clavicle Excision - Khris Bennett MD Date/Time: 03/08/24 07:03 Surgeon: Khris Bennett MD Pre Op Diagnosis: Lt Shoulder Rot Cuff Tear, AC Arthritis Patient Data Age: 54 Gender: M Height: 1.85 m Weight: 123.7 kg Last Vital Signs Temp 36.2 C L 03/08/24 06:30 Pulse 87 03/08/24 06:30 Resp 18 03/08/24 06:30 BP 148/93 H 03/08/24 06:30 Pulse Ox 97 03/08/24 06:30 O2 Del Method Room Air 03/08/24 06:30 Allergies Allergy/AdvReac Type Severity Reaction Status Date / Time naproxen Allergy Mild vertigo Verified 03/08/24 07:00 Penicillins Allergy Mild Swelling Verified 03/08/24 07:00 indomethacin AdvReac Intermediate Nausea Verified 03/08/24 07:00 Home Medications ?Medication ?Instructions ?Recorded ?Confirmed ?Type lisinopril 20 2 tablet PO DAILY #180 tabs 10/29/23 03/08/24 Rx mg-hydrochlorothiazide 12.5 mg tablet hydrocodone 5 mg-acetaminophen 325 1 tablet PO DAILY PRN pain #14 tabs 12/07/23 02/25/24 Rx mg tablet sildenafil (pulm.hypertension) 20 100 mg (5 x 20 mg) PO DAILY PRN 01/10/24 02/25/24 Rx mg tablet sexual activity #30 tabs Patient hx anesthesia problems: none Family hx anesthesia problems: none Results Review: All pre-operative results and documents have been reviewed as part of the pre- operative evaluation. [facility] Past Medical History Medical History Right conjunctivitis Testicular hypofunction Obesity Hypertension Surgical History Surgical History Carpal tunnel syndrome on both sides Staged bilateral releases November 2019 History of left knee surgery (~2015) Dr bennett Family History Family History Father Diabetes mellitus Hypertension DVT (deep venous thrombosis) Grandparent Diabetes mellitus Mother DVT (deep venous thrombosis) Social History Social History Smoking status: Never smoker Second hand tobacco smoke exposure: No Alcohol intake: current Drinks per week: 1 Alcohol use details: Social drinker Substance use type: does not use Do You Feel Safe in your Home?: Yes Lack of Transportation: No Lack of Food: Never True Current Housing: I Have Housing Concerned About Future Housing: No Difficulty Paying Gas/Electric Bills: No Difficulty Paying for Meds: No Currently Unemployed: No Education: Trade/Vocational Certificate Difficulty w/ Childcare or Family Care: No Living arrangements: with family Occupation/Education: occupation 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 Gender identity (if verbalized by the patient): Male Sexual Orientation (if Verbalized by the Patient): Straight or Heterosexual Spiritual care concerns: No Agree to blood products: Yes Anes - Eval Final PreProcedure Day of Procedure 03/08/24 07:03 Patient weight: obese Heart: regular rate and rhythm Lungs: clear to auscultation Airway: Mallampati scale class II Neurological: alert and oriented Last oral intake: >/= 8 hours ASA classification: III Emergent: no Anesthetic plan: proceed Anesthesia type and monitoring: general LMA and standard monitoring Results Review: All pre-operative results and documents have been reviewed as part of the pre- operative evaluation. Informed Consent: The patient's anesthetic plan and its attendant risks and benefits were discussed with the patient/family/POA. Questions were solicited and answers provided to the satisfaction of the patient/family/POA.
[2024-03-08] MEDS: ceFAZolin 3 GM/D5W 100 ML 100 ML IVPB (07:25)
[2024-03-08] MEDS: LIDO 1%/EPINEPHRINE 1:100,000 20 ML VIAL 30 ML INFILTRATE (08:22)
--- NOTE | 2024-03-08 08:42 | P.OP_ITS ---
Procedure Note - Detailed Date of Procedure 03/08/24 Pre-op Diagnosis LEFT Shoulder Rotator Cuff Tear AC Arthritis Post-op Diagnosis Same Procedure Performed Rotator cuff repair Distal clavicle excision Surgeon Khris Ortiz MD Anesthesia General Indications Pain and Rotator Cuff tear Findings Pain and Tearing of the rotator Cuff. Arthrosis A/C joint Description of Procedure Patient brought to the operative room #7. A general anesthetic was administered. The patient was placed in the beach chair position with the LEFT shoulder exposed.? After sterile prep and drape, standard posterior and lateral portals were used for arthroscopy. The joint itself looked reasonably good the biceps tendon was intact.? There was fraying and tearing of the rotator cuff area in the supraspinatus tear region. This was gently debrided.? The subacromial space had an intense bursa, this was debrided with a shaver and acromioplasty performed arthroscopically.? The subacromial space was quite tight initially. I then proceeded to open the shoulder. A longitudinal incision made from the AC joint distalward over the shoulder.? Dissection carried down to the fascia. The fascia overlying the acromioclavicular joint was split. The AC joint found and a distal clavicle excision performed removing 2 to 3 millimeters of bone.? The edges beveled.? The deltoid was then split from the tip of the acromion. The r emainder of the bursa was debrided.? The rotator cuff was torn in the supraspinatus interval. This was debrided and repaired to bone using #2 Ethibond suture.? At this point the deltoid was repaired to itself,the acromion and the trapezius #2 Ethibond. The skin was closed with 2-0 Vicryl and marcelino.? Sterile dressing applied patient tolerated well left the operating room satisfactory condition. Estimated Blood Loss 50 Drains No Packing No Pathology None sent Complications No immediate complications Condition Stable Disposition PACU [facility] Billing Surgery - Charge Forward: Surgery Billing ([id number] RTC Repair [id number] DCE)
--- NOTE | 2024-03-08 10:26 | WPDANESPNB ---
Anes - Peripheral Nerve Block Date/Time: 03/08/24 10:26 I have discussed with the patient/family/POA the placement of a peripheral nerve block for post-operative pain management, including associated risks, benefits, complications, and side effects. Alternative methods of post-operative analgesia were detailed. Questions were solicited and answers provided to the satisfaction of the patient/family/POA. Time-Out: A pre-procedural Time-Out was completed immediately before starting the procedure and confirmed: Patient Identification, Site, Procedure, Patient Position and the Availability of Requisite Equipment. Clinical Indications: Acute post-operative pain management requested by the operative surgeon. Nerve Block Insertion Note Anes-nerve block: interscalene left Patient position: supine Skin prep: chlorhexidine Needle: 22 gauge, stimulating, insulated echogenic needle. Needle length: 50 mm Technique: nerve stimulation lost at (mA) (0.3) and ultrasound Technique comment: done in PACU Injectate: bupivacaine 0.5% with epi 5 mcg/ml (30ml no epi) and dexamethasone (mg) (4) Observations: tolerated well Complications: none Procedure start time:: 914 Procedure end time:: 921
[2024-03-08] MEDS: ONDANSETRON INJ 4 MG/2 ML VIAL IV PUSH (10:50)
== END 2024-03-08 12:30 | disposition home or self-care (01) ==
PROVIDERS: PCP Family Medicine Adolescent Medicine; Visit Provider Orthopaedic Surgery
PROC: (CPT 29805; principal; 2024-03-08 07:30)
DX: M75.102 Unspecified rotator cuff tear or rupture of left shoulder, not specified as traumatic (principal); M19.012 Primary osteoarthritis, left shoulder; G89.18 Other acute postprocedural pain; I10 Essential (primary) hypertension; E29.1 Testicular hypofunction; E66.9 Obesity, unspecified; Z68.36 Body mass index [BMI] 36.0-36.9, adult; Z79.891 Long term (current) use of opiate analgesic; Z98.890 Other specified postprocedural states
CPT/HCPCS: 64415; 23412; 23120; A4565; A9270; J0690; J1100; J1885; J2004; J2250; J2270; J2405; J2704; J7120

== ENCOUNTER 2025-01-26 17:56 | Emergency (ER) | payer OTHER, SELFPAY ==
--- OUTSIDE RECORDS SUMMARY | 2025-01-26 17:59 | XMS_ITS | Clinical Summary ---
Author Organization [facility] Address [address] [place] [id number] Care Team Providers Care Family Partner Name Role Phone Unavailable Primary Care Provider Unavailabl e Social History Tobacco Use Types Packs/Day Years Used Date Smoking Tobacco: Never Assessed Sex and Gender Information Value Date Recorded Sex Assigned at Not on file Legal Sex Male 7:43 PM CDT Gender Identity Not on file Sexual Orientation Not on file Plan of Treatment Health Maintenance Due Date Last Done Comments Colorectal Cancer Screening Colonoscopy (10 Years) 1972 Annual Physical 01/26/1975 Hepatitis C 01/26/1990 DTaP, Tdap and Td Vaccines ( 1 - Tdap) 01/26/1991 Hepatitis B Vaccines (1 of 3 - 19+ 3-dose series) 01/26/1991 Pneumococcal Vaccine: 50+ Ye ars (1 of 1 - PCV) 01/26/2022 Zoster Vaccines (1 of 2) 01/26/2022 COVID-19 Vaccine ( - 2024-2 6 season) 2024 Influenza Adult (#1) 2024 Hepatitis A Vaccines Aged Out No long er eligible based on patient's age to complete this topic Meningococcal B Vaccine Aged Out No l onger eligible based on patient's age to complete this topic Meningococcal Vaccine Aged Out No eli jessica eligible based on patient's age to complete this topic RSV Immunizations Under 20 Months Aged Out No longer eligible based on patient's age to complete this topic
--- OUTSIDE RECORDS SUMMARY | 2025-01-26 17:59 | XMS_ITS | Clinical Summary ---
Author Organization [facility] Address [address] [place] [address] Care Team Providers Care Marketing Effectiveness Manager Name Role Phone Ector Joshi MD Primary Care Prov ider Allergies Active Allergy Reactions Criticality Noted Date Comments Naproxen Dizziness,Nausea & Vomiting Low 07/05/19 24 Penicillins Swelling Medium 07/05/2023 Social History Tobacco Use Types Packs/Day Years Used Date Smoking Tobacco: Never Assessed Personal Safety Answer Date Recorded Have you ever been in or are you currently in a harmful physical or emotional relationship or is someone making you feel afraid or unsafe? Denies 07/02/2024 Sex and Gender Information Value Date Recorded Sex Assigned at Not on file Legal Sex Male 4:04 AM CDT Gender Identity Not on file Sexual Orientation Not on file Last Filed Vital Signs Vital Sign Reading Time Taken Comments Blood Pressure 143/88 07/02/2024 9:03 PM CDT Pulse 102 07/02/2024 9:03 PM CDT Temperature 36.8 C (98.3 F) 07/02/2024 9:03 PM CDT Respiratory Rate 18 07/02/2024 9:03 PM CDT Oxygen Saturation 100% 07/02/2024 9:03 PM CDT Inhaled Oxygen Concentration - - Weight 117.9 kg (260 lb) 07/02/2024 9:03 PM CDT Height 185.4 cm (6' 1) 07/02/2024 9:03 PM CDT Body Mass Index 34.3 07/02/2024 9:03 PM CDT Plan of Treatment Health Maintenance Due Date Last Done Comments Colon Cancer Screening-Colonoscopy 1972 Depression Screening 1972 Hepatitis C Screening 1972 Prostate Cancer Screening-PSA 1972 DTaP/Tdap/Td Vaccine (1 - Tdap) 01/26/1983 Hepatitis B Screening 01/26/1990 Regular Well Visit/Exam 18-64 01/26/1990 Zoster Vaccine (1 of 2) 01/26/2022 Influenza Vaccine (#1) 2024 Pneumococcal vaccine <65 Aged Out No longer eligible based on patient's age to complete this topic Insurance [facility] CHO[employer] PL[employer] Care Teams Marketing Effectiveness Manager Relationship Specialty Start Date End Date Ector Joshi MD PCP - General Family Medicine 07/05/23
--- OUTSIDE RECORDS SUMMARY | 2025-01-26 17:59 | XMS_ITS | Clinical Summary ---
Author Organization [facility] [email or web address] Address [address] [place] [address] Care Team Providers Care Program Support Clerk Name Role Phone Ector Joshi MD Primary Care Provider + Source Comments [facility],non-owned Affiliates and Associated Physician Practices is amultiple site organization consisting of ambulatory clinics and hospital sitesin [place], [place] and [place]. This disclosure is being madepursuant to the Care Everywhere program and may not contain all information available regarding this patient. Last updated 17.[email or web address] [email or web address] Allergies Active Allergy Reactions Criticality Noted Date Comments Penicillins Angioedema 09/18/2015 Medications * Be aware that medications may not be up to date on this document. Alwaysverify current medications with the patient. naproxen sodium (ANAPROX DS) 550 MG tablet Take 1 Tab by mouth 2 times daily as needed for Pain 10 Tab 0 09/18/2015 Active cyclobenzaprine (FLEXERIL) 10 MG tablet Take 1 Tab by mouth 3 times daily as needed for Muscle Spasms 15 Tab 0 09/18/2015 Active Social History Tobacco Use Types Packs/Day Years Used Date Smoking Tobacco: Never Assessed Sex and Gender Information Value Date Recorded Sex Assigned at Not on file Legal Sex Male 7:07 PM CDT Gender Identity Not on file Sexual Orientation Not on file Last Filed Vital Signs Vital Sign Reading Time Taken Comments Blood Pressure 147/92 09/18/2015 7:22 PM CDT Pulse 82 09/18/2015 7:22 PM CDT Temperature 37.2 C (98.9 F) 09/18/2015 7:22 PM CDT Respiratory Rate 17 09/18/2015 7:22 PM CDT Oxygen Saturation 98% 09/18/2015 7:22 PM CDT Inhaled Oxygen Concentration - - Weight 113.4 kg (250 lb) 09/18/2015 7:22 PM CDT Height 185.4 cm (6' 0.99) 09/18/2015 7:22 PM CD T Body Mass Index 32.99 09/18/2015 7:22 PM CDT Plan of Treatment Health Maintenance Due Date Last Done Comments COLOGUARD (AGES 45-75) - COL ON CA SCREENING 1972 COLON MONITORING 1972 COLONOSCOPY - COLON CA SCREENING 1972 CT COLONOGRAPHY - COLON CA SCREENING 1972 Colorectal Cancer Screening 1972 FIT - COLON CA SCREENING 1972 FLEX SIG - COLON CA SCREENING 1972 LIPID TESTING 1972 HIV SCREENING 01/26/1987 HEPATITIS C SCREENING 01/22/1990 DTAP/TDAP/TD VACCINES (1 - Tdap) 01/26/1991 HEPATITIS B VACCINE (1 of 3 - 19+ 3-dose series) 01/26/1991 PNEUMOCOCCAL VACCINE 50+ (1 of 1 - PCV) 01/26/2022 ZOSTER VACCINE (1 of 2) 01/26/2022 DEPRESSION SCREENING 03/01/2024 COVID-19 VACCINE (1 - 2024-2 6 season) 2024 INFLUENZA VACCINE (#1) 2024 HIB VACCINE Aged Out No longer eligi ble based on patient's age to complete this topic HPV VACCINE Aged Out No longer eligi ble based on patient's age to complete this topic MENINGOCOCCAL (Group B) VACC INE SHARED DECISION-MAKING Aged Out No longer eligibl e based on patient's age to complete this topic MENINGOCOCCAL GROUPS A/C/Y/W VACCINE Aged Out No longer eligible b ased on patient's age to complete this topic Insurance [facility] [employer] Member Subscriber Plan / Payer (Ef fective for All Dates) Name:Mamadou Youssef Jr. Relation to Subscriber:Self Name:Patrick Youssefdani Ordaz Payer ID:Not on file Group ID:Not on file Type:Worker's Comp Address: [address] [id number] [facility] Care Teams Program Support Clerk Relationship Specialty Start Date End Date Ector Joshi MD [address] [address] PCP - General Family Medicine 09/18/15
[2025-01-26 18:00] VITALS: BP 136/92; PULSE 95; RESP 16; TEMP 36.7; O2SAT 99
--- NOTE | 2025-01-26 18:08 | ED.URI ---
HPI - URI/Sore Throat General Chief Complaint: Upper Respiratory Infection Stated Complaint: cough/head and chest congestion Time Seen by Provider: 01/26/25 18:08 Source: patient Mode of arrival: ambulatory Limitations: no limitations History of Present Illness HPI Narrative: 55-year-old male presents with complaint of sinus congestion, sinus pressure, postnasal drainage, coughing for 3 weeks. Has tried several krij-enh-qvzhzhe medications with no relief of symptoms. Patient states his primary care physician called and benzonatate for him but is not helping. Started Yuly D which she feels is somewhat helping with cough. Afebrile. All systems reviewed and negative except as above. Related Data Allergies Allergy/AdvReac Type Severity Reaction Status Date / Time Penicillins Allergy Mild Swelling Verified 01/26/25 18:07 indomethacin AdvReac Intermediate Nausea Verified 01/26/25 18:07 naproxen AdvReac Mild vertigo Verified 01/26/25 18:07 PMFSH Past Medical History Medical History Right conjunctivitis Testicular hypofunction Obesity Hypertension Surgical History Surgical History History of repair of left rotator cuff (03/2024) Carpal tunnel syndrome on both sides Staged bilateral releases November 2019 History of left knee surgery (~2015) Dr bennett Family History Family History Father Diabetes mellitus Hypertension DVT (deep venous thrombosis) Grandparent Diabetes mellitus Mother DVT (deep venous thrombosis) Social History Social History Smoking status: Never smoker Second hand tobacco smoke exposure: No Alcohol intake: current Drinks per week: 1 Alcohol use details: Social drinker Substance use type: does not use Lack of Transportation: No Lack of Food: Never True Current Housing: I Have Housing Concerned About Future Housing: No Difficulty Paying Gas/Electric Bills: No Difficulty Paying for Meds: No Currently Unemployed: No Education: Trade/Vocational Certificate Difficulty w/ Childcare or Family Care: No Living arrangements: with family Occupation/Education: occupation 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 Gender identity (if verbalized by the patient): Male Sexual Orientation (if Verbalized by the Patient): Straight or Heterosexual Spiritual care concerns: No Agree to blood products: Yes Comments At time of signature, agree with nursing past medical, surgical, social and family history. There is no relevant family history pertinent to the presenting complaint. Exam Narrative: GENERAL: This is a well-nourished, well-developed patient, Ill-appearing but no acute distress HEAD: normocephalic, atraumatic. EYES: PERRL. Sclera clear/white. Vision is grossly intact. EARS: External ears normal, auditory canals clear and without drainage, TMs normal without perforation. Hearing grossly intact. NOSE: External nose normal with Congestion, purulent nasal drainage, erythema and swelling to bilateral nares THROAT: Mucous membranes moist, erythematous with postnasal drainage. NECK: Neck supple, non-tender without lymphadenopathy, masses or thyromegaly. CARDIOVASCULAR: Regular rate and rhythm without murmurs, gallops, or rubs. RESPIRATORY: Clear to auscultation. Breath sounds equal bilaterally. No wheezes, rales, or rhonchi. SKIN: warm, Dry, intact with no suspicious lesions or rash, good texture and turgor. NEURO: awake, alert, and oriented to person, place and time. There were no obvious focal neurologic abnormalities. EXTREMITIES: No joint tenderness, effusion, or edema noted. Course Course Level of Care: Express Care Visit Vital Signs Vital signs: Vital Signs Temperature 36.7 C 01/26/25 18:00 Pulse Rate 95 01/26/25 18:00 Respiratory Rate 16 01/26/25 18:00 Blood Pressure 136/92 H 01/26/25 18:00 Pulse Oximetry 99 01/26/25 18:00 Oxygen Delivery Room Air 01/26/25 18:00 Temperature 36.7 C 01/26/25 18:00 Pulse Rate 95 01/26/25 18:00 Respiratory Rate 16 01/26/25 18:00 Blood Pressure 136/92 H 01/26/25 18:00 Pulse Oximetry 99 01/26/25 18:00 Oxygen Delivery Room Air 01/26/25 18:00 reviewed MDM - URI/Sore Throat MDM Narrative Medical decision making narrative: will treat bacterial sinusitis with antibiotic duration of the exam findings. Patient is alert, nontoxic. Lungs clear to auscultation. Differential Diagnosis Differential diagnosis: Likely upper respiratory infection, sinusitis, viral infection, influenza and pharyngitis Discharge Plan Discharge Clinical Impression: Acute bacterial sinusitis Patient Disposition: Home Condition: Stable Instructions: Antibiotic Form, Sinusitis (ED) Additional Instructions: Take medications as prescribed until gone. Continue dgbt-vlo-ylubbti Yuly D as directed on packaging. Drink at least 64 oz of water a day. Place cool mist humidifier in bedroom where you sleep. Follow-up with your primary care physician if symptoms are not improving. Patient Language: Guamanian Prescriptions: New doxycycline hyclate 100 mg capsule 100 mg PO BID 7 Days Qty: 14 0RF prednisone 20 mg tablet 40 mg PO DAILY 5 Days Qty: 10 0RF No Action sildenafil (pulm.hypertension) 20 mg tablet 100 mg PO DAILY PRN (Reason: sexual activity) Qty: 30 8RF Rx Instructions: take up to 5 tablets as needed 1 hour prior to sexual activity. lisinopril-hydrochlorothiazide 20-12.5 mg tablet 2 tablet PO DAILY Qty: 180 0RF Follow-up/Referrals: Ector Joshi MD [Primary Care Provider, [facility]] Time of Disposition: 18:15
== END 2025-01-26 18:21 | disposition home or self-care (01) ==
PROVIDERS: Emergency Provider Nurse Practitioner Family; PCP Family Medicine Adolescent Medicine
DX: J01.90 Acute sinusitis, unspecified (principal); I10 Essential (primary) hypertension; E66.9 Obesity, unspecified; Z68.31 Body mass index [BMI] 31.0-31.9, adult
CPT/HCPCS: 99213; G0463

== ENCOUNTER 2025-02-03 12:52 | Emergency (ER) | payer OTHER, SELFPAY ==
--- OUTSIDE RECORDS SUMMARY | 2025-02-03 12:55 | XMS_ITS | Clinical Summary ---
Author Organization [facility] Address [address] [place] [address] Care Team Providers Care Glued Wood Tester Name Role Phone Ector Joshi MD Primary Care Provider + Source Comments [facility]non-owned Affiliates and Associated Physician Practices is amultiple site organization consisting of ambulatory clinics and hospital sitesin [place], [place], [place] and [place]. This disclosure is being madepursuant to the Care Everywhere program and may not contain all information available regarding this patient. Last updated 17.[facility] Allergies Active Allergy Reactions Criticality Noted Date [...] patient's age to complete this topic Insurance [facility] [employer] GENER[employer] Member Subscriber Plan / Payer (Ef fective for All Dates) Name:Mamadou Youssef Jr. Relation to Subscriber:Self Name:Patrick Youssefdani Ordaz Payer ID:Not on file Group ID:Not on file Type:Worker's Comp Address: [address] [phone] [facility] Care Teams Glued Wood Tester Relationship Specialty Start Date End Date Ector Joshi MD [address] [address] PCP - General Family Medicine 09/18/15
--- OUTSIDE RECORDS SUMMARY | 2025-02-03 12:55 | XMS_ITS | Clinical Summary ---
Author Organization [facility] Address [address] [place] [id number] Care Team Providers Care Goldsmith Apprentice Name Role Phone Unavailable Primary Care Provider [...]
[2025-02-03 12:58] VITALS: BP 154/104; PULSE 91; RESP 16; TEMP 36.8; O2SAT 99
[2025-02-03 13:01] VITALS: BP 153/104
--- NOTE | 2025-02-03 13:07 | ED_ITS ---
HPI - Skin/Abscess/Foreign Bdy General Chief complaint: Skin/Abscess/Foreign Body Stated complaint: Skin Problem Time Seen by Provider: 02/03/25 13:07 Source: patient Mode of arrival: ambulatory Limitations: no limitations History of Present Illness HPI narrative: 55 yo M presents with c/o rectal burning for the past 3 to 4 wks. Would feel the burning after having a BM and would last a few hours and then go away. Started using tucks wipes which helped. About a week ago began having rectal pain when having a BM. Tucks wipes no longer helping. Was straining to have BM so started a stool softener. Last night had severe pain when having a BM. Noticed blood in stool. Pt states he never had issues with BMs or hemorrhoids. Started ozempic over a month ago and thinks that is what is causing bowel changes. Does not feel a homrrohid but wants to be checked. All systems reviewed and negative except as noted above. Related Data Home Medications ?Medication ?Instructions ?Recorded ?Confirmed ?Last Taken ?Type semaglutide subcut 02/03/25 Unknown His tory Allergies Allergy/AdvReac Type Severity Reaction Status Date / Time Penicillins Allergy Mild Swelling Verified 02/03/25 13:15 indomethacin AdvReac Intermediate Nausea Verified 02/03/25 13:15 naproxen AdvReac Mild vertigo Verified 02/03/25 13:15 PMFSH Past Medical History Medical History Right conjunctivitis Testicular hypofunction Obesity Hypertension Surgical History Surgical History History of repair of left rotator cuff (03/2024) Carpal tunnel syndrome on both sides Staged bilateral releases November 2019 History of left knee surgery (~2015) Dr bennett Family History Family History Father Diabetes mellitus Hypertension DVT (deep venous thrombosis) Grandparent Diabetes mellitus Mother DVT (deep venous thrombosis) Social History Social History Smoking status: Never smoker Second hand tobacco smoke exposure: No Alcohol intake: current Drinks per week: 1 Alcohol use details: Social drinker Substance use type: does not use Lack of Transportation: No Lack of Food: Never True Current Housing: I Have Housing Concerned About Future Housing: No Difficulty Paying Gas/Electric Bills: No Difficulty Paying for Meds: No Currently Unemployed: No Education: Trade/Vocational Certificate Difficulty w/ Childcare or Family Care: No Living arrangements: with family Occupation/Education: occupation 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 Gender identity (if verbalized by the patient): Male Sexual Orientation (if Verbalized by the Patient): Straight or Heterosexual Spiritual care concerns: No Agree to blood products: Yes Comments At time of signature, agree with nursing past medical, surgical, social and family history. There is no relevant family history pertinent to the presenting complaint. Exam Narrative: GENERAL: This is a well-nourished, well-developed patient, in no apparent distress. HEAD: normocephalic, atraumatic. EYES: PERRL. Sclera clear/white. Vision is grossly intact. EARS: External ears normal NOSE: External nose normal NECK: Neck supple, non-tender without lymphadenopathy, masses or thyromegaly. CARDIOVASCULAR: Regular rate and rhythm without murmurs, gallops, or rubs. RESPIRATORY: Clear to auscultation. Breath sounds equal bilaterally. No wheezes, rales, or rhonchi. GASTROINTESTINAL: Abdomen soft, non-tender, nondistended. Bowel sounds are active. No hepato-splenomegaly, or palpable masses. No guarding. no external hemorrhoids noted. scant dry blood to rectum. tender on exam concerning for internal hemorrhoid. no access to anal scope, exam is limited SKIN: warm, Dry, intact with no suspicious lesions or rash, good texture and turgor. NEURO: awake, alert, and oriented to person, place and time. There were no obvious focal neurologic abnormalities. EXTREMITIES: No joint tenderness, effusion, or edema noted. Course Course Level of Care: Express Care Visit Vital Signs Vital signs: Vital Signs Temperature 36.8 C 02/03/25 12:58 Pulse Rate 91 02/03/25 12:58 Respiratory Rate 16 02/03/25 12:58 Blood Pressure 154/104 H 02/03/25 12:58 Pulse Oximetry 99 02/03/25 12:58 Oxygen Delivery Room Air 02/03/25 12:58 Temperature 36.8 C 02/03/25 12:58 Pulse Rate 91 02/03/25 12:58 Respiratory Rate 16 02/03/25 12:58 Blood Pressure 153/104 H 02/03/25 13:01 Pulse Oximetry 99 02/03/25 12:58 Oxygen Delivery Room Air 02/03/25 12:58 reviewed MDM MDM Narrative Medical decision making narrative: exam limited due to no access to anal scope. pt's symptoms concerning for internal hemorrhoid. will prescription suppository, protofoam due to his discomfort. Will continue stool softener and start fiber powder. referred to general surgery for follow up. Will go to the ER for any worsning of symptoms. Differential Diagnosis Differential Diagnosis: Differential Diagnostic considerations for GI bleeding include PUD, varices, diverticular bleed, ischemic colitis, Meckel?s diverticulum, AV malformation, radiation colitis, infectious colitis, inflammatory colitis, hemorrhoids, Carlie-Alfonso syndrome, gastrointestinal hemorrhage, melena, anal fissure.? Discharge Plan Discharge Clinical Impression: Elevated blood pressure reading, Pain, rectal Patient Disposition: Home Condition: Stable Instructions: Hemorrhoids (ED), Rectal Bleeding (ED) Additional Instructions: Call and schedule follow up appointment with specialist for further evaluation of your rectal pain. Patient Language: Bermudian Prescriptions: New pramoxine [Proctofoam] 1 % foam 1 applic RECTAL BID PRN (Reason: hemorrhoids) Qty: 15 0RF hydrocortisone acetate [Anucort-HC] 25 mg suppository 25 mg RECTAL DAILY Qty: 12 0RF No Action semaglutide [Ozempic] subcut sildenafil (pulm.hypertension) 20 mg tablet 100 mg PO DAILY PRN (Reason: sexual activity) Qty: 30 8RF Rx Instructions: take up to 5 tablets as needed 1 hour prior to sexual activity. Follow-up/Referrals: Stewart Bautista MD [Physician, General Surgery] Referral Note: follow up for further evaluation of rectal pain Ector Joshi MD [Primary Care Provider, Family Practice] - 1 Week Referral Note: recheck blood pressure Stand Alone Forms: Work/School Release IP Time of Disposition: 13:30
== END 2025-02-03 13:30 | disposition home or self-care (01) ==
PROVIDERS: Emergency Provider Nurse Practitioner Family; PCP Family Medicine Adolescent Medicine
DX: I10 Essential (primary) hypertension (principal); K62.89 Other specified diseases of anus and rectum; E66.9 Obesity, unspecified; Z68.31 Body mass index [BMI] 31.0-31.9, adult
CPT/HCPCS: 99213; G0463